=== PATIENT | male | born 1955 ===

== ENCOUNTER 2018-02-26 02:43 | Emergency (ER) | payer SELFPAY ==
[2018-02-26 02:50] VITALS: TEMP 98.7; O2SAT 95
[2018-02-26 04:30] LABS: BASO # 0.1 K/uL (0.0-0.2); EOS # 0.2 K/uL (0.0-0.7); HEMOGLOBIN 14.1 g/dL (12.0-18.0); LYMPH # 0.7 K/uL (1.0-4.3); LYMPH % 15.4 % (20.0-40.0); MEAN CELL VOLUME 86.8 fL (80.0-94.0); MEAN CORPUSCULAR HEMOGLOBIN 30.4 pg (27.0-31.0); MEAN PLATELET VOLUME 7.2 fL (7.2-11.7); MONO # 0.2 K/uL (0.0-0.8); MONO % 4.8 % (0.0-10.0); NEUT # 3.6 K/uL (1.8-7.0); NEUT % 73.8 % (50.0-75.0); NRBC % 0.1 % (0.0-2.0); RBC 4.63 Mil/uL (4.40-5.90); RED CELL DISTRIBUTION WIDTH 13.4 % (11.5-14.5); WHITE BLOOD COUNT 4.8 K/uL (4.8-10.8)
[2018-02-26 04:41] LABS: ALB/GLOB RATIO 1.4 (1.0-2.1); ALBUMIN 4.3 g/dL (3.5-5.0); ALT/SGPT 30 U/L (21-72); AST/SGOT 52 U/L (17-59); BLOOD UREA NITROGEN 6 mg/dL (9-20); CALCIUM 8.8 mg/dl (8.6-10.4); GFR AFRICAN-AMERICAN > 60; GFR NON-AFRICAN AMERICAN > 60
--- NOTE | 2018-02-26 05:13 | C.PDOC ---
History Of Present Illness 62 year old male is brought in to the ED for evaluation. Patient has PMHx of chronic alcoholism, currently c/o headache. Patient reports left sided headache as well as feeling like he is having a panic attack. Patient denies fever, chills, injury, fall, trauma, CP, SOB, weakness, numbness, SI/HI, hallucinations. Time Seen by Provider: 02/26/18 03:26 Chief Complaint (Nursing): Headache History Per: Patient, EMS History/Exam Limitations: intoxication Onset/Duration Of Symptoms: Hrs Current Symptoms Are (Timing): Still Present Quality: "Pain" Associated Symptoms: denies: Photophobia, Blurred Vision Recent travel outside of the [place]: No Additional History Per: Patient Past Medical History Reviewed: Historical Data, Nursing Documentation, Vital Signs Vital Signs: Last Vital Signs Temp 98.7 F 02/26/18 02:49 Pulse 72 02/26/18 02:49 Resp 18 02/26/18 02:49 BP 135/88 02/26/18 02:49 Pulse Ox 95 02/26/18 05:17 - Medical History PMH: No Chronic Diseases Surgical History: No Surg Hx Family History: States: Unknown Family Hx - Social History Hx Alcohol Use: Yes Hx Substance Use: No - Immunization History Hx Tetanus Toxoid Vaccination: No Hx Influenza Vaccination: No Hx Pneumococcal Vaccination: No Review Of Systems Constitutional: Negative for: Fever, Chills Eyes: Negative for: Vision Change Cardiovascular: Negative for: Chest Pain, Palpitations Respiratory: Negative for: Cough, Shortness of Breath Gastrointestinal: Negative for: Nausea, Vomiting, Abdominal Pain Neurological: Positive for: Headache. Negative for: Weakness, Numbness, Dizziness Psych: Negative for: Depression, Suicidal ideation Physical Exam - Physical Exam Appears: Non-toxic, No Acute Distress, Other (AOB, sleeping) Skin: Normal Color, Warm, Dry Head: Atraumatic, Normacephalic Eye(s): bilateral: Normal Inspection, PERRL, EOMI Oral Mucosa: Moist Neck: Normal ROM, Supple Chest: Symmetrical Cardiovascular: Rhythm Regular Respiratory: Normal Breath Sounds, No Rales, No Rhonchi, No Wheezing Gastrointestinal/Abdominal: Soft, No Tenderness, No Guarding, No Rebound Extremity: Normal ROM, No Tenderness, No Swelling Neurological/Psych: Oriented x3, Normal Speech, Normal Motor, Normal Sensation, Other (no focal deficits) Gait: Steady ED Course And Treatment - Laboratory Results Result Diagrams: 02/26/18 04:25 02/26/18 04:25 O2 Sat by Pulse Oximetry: 95 (ON RA) Pulse Ox Interpretation: Normal Progress Note: Plan: - Tylenol 650 mg PO. - Labs. Patient is currently sleeping while in the ED, appears to be in NAD, no visible signs of external trauma. 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 - Scribe Statement The provider has reviewed the documentation as recorded by the Scribe Josesito Rao All medical record entries made by the Scribe were at my direction and personally dictated by me. I have reviewed the chart and agree that the record accurately reflects my personal performance of the history, physical exam, medical decision making, and the department course for this patient. I have also personally directed, reviewed, and agree with the discharge instructions and disposition.
[2018-02-26 06:26] VITALS: BP 144/75; PULSE 88; RESP 20
== END 2018-02-26 06:26 | disposition home or self-care (01) ==
LOC: C.ER 02:43 → SUPCPDRO 02:43 → C.ER 06:26
DX: R51 Headache (principal); F41.9 Anxiety disorder, unspecified; F10.129 Alcohol abuse with intoxication, unspecified; Y90.9 Presence of alcohol in blood, level not specified
CPT/HCPCS: 80053; 82948; 85025; 99285; G0480

== ENCOUNTER 2018-04-17 05:53 | Emergency (ER) | payer SELFPAY ==
[2018-04-17 06:02] VITALS: BP 142/88; PULSE 65; RESP 22; TEMP 98.2; O2SAT 98
--- NOTE | 2018-04-17 07:34 | C.PDOC ---
History Of Present Illness 62 y/o male presents to ED for evaluation of unable to sleep for the past few days. He denies SI, HI, or any active physical complaints at this time. Time Seen by Provider: 04/17/18 07:12 Chief Complaint (Nursing): Anxiety History Per: Patient History/Exam Limitations: no limitations Onset/Duration Of Symptoms: Days Current Symptoms Are (Timing): Still Present Suicide/Self Injury Attempted (Context): None Modifying Factor(s): None Severity: None Pain Scale Rating Of: 0 Associated Symptoms: denies: Suicidal Thoughts, Suicidal Plan Involuntary Hold By: None Recent travel outside of the [place]: No Additional History Per: Patient Past Medical History Reviewed: Historical Data, Nursing Documentation, Vital Signs Vital Signs: Last Vital Signs Temp 98.2 F 04/17/18 06:01 Pulse 65 04/17/18 06:01 Resp 22 04/17/18 06:01 BP 142/88 04/17/18 06:01 Pulse Ox 98 04/17/18 09:26 - Medical History PMH: Anxiety, Depression, HTN Denies: Diabetes, Hepatitis, HIV, Seizures, Sexually Transmitted Disease Family History: States: Unknown Family Hx - Social History Hx Alcohol Use: Yes Hx Substance Use: No - Immunization History Hx Tetanus Toxoid Vaccination: No Hx Influenza Vaccination: No Hx Pneumococcal Vaccination: No Review Of Systems Except As Marked, All Systems Reviewed And Found Negative. Constitutional: Negative for: Fever, Chills Cardiovascular: Negative for: Chest Pain, Palpitations Respiratory: Negative for: Shortness of Breath Psych: Positive for: Other (unable to sleep). Negative for: Suicidal ideation Physical Exam - Physical Exam Appears: Non-toxic, No Acute Distress Skin: Normal Color, Warm, Dry Head: Atraumatic, Normacephalic Eye(s): bilateral: Normal Inspection Oral Mucosa: Moist Neck: Normal ROM, Supple Cardiovascular: Rhythm Regular Respiratory: Normal Breath Sounds, No Rales, No Rhonchi, No Wheezing Gastrointestinal/Abdominal: Soft, No Tenderness Extremity: Normal ROM Neurological/Psych: Oriented x3, Normal Speech ED Course And Treatment O2 Sat by Pulse Oximetry: 98 (RA) Pulse Ox Interpretation: Normal Medical Decision Making Medical Decision Making: Plan: Crisis evaluation Progress note: Pt was evaluated by dry yard workerAminah who reports pt does not meet criteria for further evaluation. Pt was seen 2 days ago at [facility] ER and was given 2 new medications including Klonopin, and Lexapro. Discussed with patient that he has to continue taking those new medications for few days and if he does not feel better in 2-3 days then he can follow up with mental health clinic. Pt agrees with plan. Disposition - Disposition Referrals: [facility] [Outside] Disposition: HOME/ ROUTINE Disposition Time: 07:32 Condition: STABLE Additional Instructions: Follow up with Mental health clinic on April 20, 2018. Take all your medications as instructed. Return to ED if feel worse. 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 - Scribe Statement The provider has reviewed the documentation as recorded by the Scribe KP All medical record entries made by the Scribe were at my direction and personally dictated by me. I have reviewed the chart and agree that the record accurately reflects my personal performance of the history, physical exam, medical decision making, and the department course for this patient. I have also personally directed, reviewed, and agree with the discharge instructions and disposition.
== END 2018-04-17 07:44 | disposition home or self-care (01) ==
LOC: C.ER 05:53
DX: G47.00 Insomnia, unspecified (principal); F41.9 Anxiety disorder, unspecified

== ENCOUNTER 2018-04-19 21:40 | Emergency (ER) | payer SELFPAY ==
[2018-04-19 21:51] VITALS: BP 132/82; PULSE 51; RESP 16; TEMP 98.1; O2SAT 97
--- NOTE | 2018-04-19 22:20 | C.PDOC ---
History Of Present Illness 62 year old male presents to the ED c/o persistent insomnia for the past 5 days. Patient is also c/o headache for the past 1 day. Patient was seen in the ED on 04/17 for the same symptoms, patient was seen on 04/15 at [facility] ER and given 2 new medications including Klonopin and Lexapro. Patient states no improvement with the medications, no improvement with Aleve. Patient has tried to follow up with PMD but the office was closed due to the Holiday. Patient denies visual changes, nausea, vomit, weakness, numbness, dizziness, trauma, injury, fall. CO PERSIST INSOMNIA X 5 DAYS, GUERRERO X 1 DAY. SEEN 04/17 FOR SAME, Pt was seen 04/15 days ago at [facility] ER and was given 2 new medications including Klonopin, and Lexapro. PS NO IMPROVE W MEDS, NO IMPROVE W ALEVE. PS TRIED TO FU W PMD BUT OFFICE CLOSED FROM HOLIDAY EXAM NEG Time Seen by Provider: 04/19/18 22:08 Chief Complaint (Nursing): Headache History Per: Patient History/Exam Limitations: no limitations Onset/Duration Of Symptoms: Days (5) Current Symptoms Are (Timing): Still Present Reports Recently: Seen In ED (04/17) Recent travel outside of the [place]: No Additional History Per: Patient Past Medical History Reviewed: Historical Data, Nursing Documentation, Vital Signs Vital Signs: Last Vital Signs Temp 98.1 F 04/19/18 21:48 Pulse 51 L 04/19/18 21:48 Resp 16 04/19/18 21:48 BP 132/82 04/19/18 21:48 Pulse Ox 97 04/19/18 22:24 - Medical History PMH: Anxiety, Depression, HTN Denies: Diabetes, Hepatitis, HIV, Seizures, Sexually Transmitted Disease Surgical History: No Surg Hx Family History: States: Unknown Family Hx - Social History Hx Alcohol Use: Yes Hx Substance Use: No - Immunization History Hx Tetanus Toxoid Vaccination: No Hx Influenza Vaccination: No Hx Pneumococcal Vaccination: No Review Of Systems Constitutional: Negative for: Fever, Chills Eyes: Negative for: Vision Change Cardiovascular: Negative for: Chest Pain Respiratory: Negative for: Shortness of Breath Gastrointestinal: Negative for: Nausea, Vomiting Musculoskeletal: Negative for: Neck Pain Skin: Negative for: Rash Neurological: Positive for: Headache. Negative for: Weakness, Numbness, Dizziness Physical Exam - Physical Exam Appears: Non-toxic, No Acute Distress Skin: Normal Color, Warm, Dry Head: Atraumatic, Normacephalic Eye(s): bilateral: Normal Inspection, PERRL, EOMI Oral Mucosa: Moist Neck: Normal ROM, Supple Chest: Symmetrical Cardiovascular: Rhythm Regular Respiratory: Normal Breath Sounds, No Rales, No Rhonchi, No Wheezing Gastrointestinal/Abdominal: Soft, No Tenderness, No Guarding, No Rebound Extremity: Normal ROM, No Tenderness, No Swelling Neurological/Psych: Oriented x3, Normal Speech, Normal Cognition, Normal Motor, Normal Sensation Gait: Steady ED Course And Treatment O2 Sat by Pulse Oximetry: 97 (ON RA) Pulse Ox Interpretation: Normal - Physician Consult Information Time Consulting Physician Contacted: 22:21 Outcome Of Conversation: SP EVAL CRISIS CAMILO, REITERATED TO PT NEEDS TO FU CLINIC PREV DISCUSSED FOR BZ REFILL Disposition Counseled Patient/Family Regarding: Diagnosis, Need For Followup - Disposition Referrals: YOUR,PMD [Other] Disposition: HOME/ ROUTINE Disposition Time: 22:22 Condition: IMPROVED Prescriptions: Acetaminophen [Tylenol Extra Strength] 2 tab PO Q6 #30 tablet DiphenhydrAMINE [Benadryl] 50 mg PO TID PRN #12 cap PRN Reason: Itching / Pruritus Instructions: Headache, Adult (DC), Insomnia (DC) Forms: [employer] (Mongolian) - Clinical Impression Clinical Impression: Headache, Insomnia - Scribe Statement The provider has reviewed the documentation as recorded by the Scribe Josesito Rao All medical record entries made by the Scribe were at my direction and personally dictated by me. I have reviewed the chart and agree that the record accurately reflects my personal performance of the history, physical exam, medical decision making, and the department course for this patient. I have also personally directed, reviewed, and agree with the discharge instructions and disposition.
== END 2018-04-19 22:39 | disposition home or self-care (01) ==
LOC: C.ER 21:40
DX: G47.00 Insomnia, unspecified (principal); R51 Headache

== ENCOUNTER 2018-09-26 09:44 | Emergency (ER) | payer SELFPAY ==
[2018-09-26 10:01] VITALS: BP 147/81; PULSE 92; RESP 18; TEMP 97.7; O2SAT 97
--- NOTE | 2018-09-26 10:30 | C.PDOC ---
History Of Present Illness 62 y/o male presents to the ED complaining of anxiety prior to arrival. Patient reports improvement status post taking Lorazepan 2mg prior to arrival. States he drinks alcohol intermittently, last drink was yesterday. Denies any other symptoms. 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 INTERMIT ETOH, LAST DRINK YEST. DENIES OTHER SX EXAM APPEARS COMFORTABLE HEENT NO FASCICULATION PSYCH CALM COOPERATIVE NO ACUTE INTOX/WITHDR REMAINDER NEG Time Seen by Provider: 09/26/18 10:05 Chief Complaint (Nursing): Psychiatric Evaluation History Per: Patient History/Exam Limitations: no limitations Onset/Duration Of Symptoms: Mins Current Symptoms Are (Timing): Still Present Suicide/Self Injury Attempted (Context): None Modifying Factor(s): None Associated Symptoms: Anxiety Past Medical History Reviewed: Historical Data, Nursing Documentation, Vital Signs Vital Signs: Last Vital Signs Temp 97.7 F 09/26/18 09:48 Pulse 92 H 09/26/18 09:48 Resp 18 09/26/18 09:48 BP 147/81 09/26/18 09:48 Pulse Ox 97 09/26/18 09:48 - Medical History PMH: Anxiety, Depression, HTN Denies: Diabetes, Hepatitis, HIV, Seizures, Sexually Transmitted Disease Surgical History: No Surg Hx Family History: States: No Known Family Hx - Social History Hx Alcohol Use: Yes Hx Substance Use: No - Immunization History Hx Tetanus Toxoid Vaccination: No Hx Influenza Vaccination: No Hx Pneumococcal Vaccination: No Review Of Systems Except As Marked, All Systems Reviewed And Found Negative. Constitutional: Negative for: Fever, Chills Cardiovascular: Negative for: Chest Pain Respiratory: Negative for: Shortness of Breath Psych: Positive for: Anxiety Physical Exam - Physical Exam Appears: Non-toxic, No Acute Distress, Other (appears comfortable ) Skin: Warm, Dry Head: Normacephalic, No Other (fasciculation) Eye(s): bilateral: Normal Inspection Nose: Normal Oral Mucosa: Moist Neck: Supple Chest: Symmetrical Cardiovascular: Rhythm Regular Respiratory: No Accessory Muscle Use, Other (NARD) Extremity: Bilateral: Atraumatic Neurological/Psych: Oriented x3, Normal Speech, Other (calm, cooperative, no acute intox/withdrawal ) Gait: Steady ED Course And Treatment O2 Sat by Pulse Oximetry: 97 (RA) Pulse Ox Interpretation: Normal Disposition Counseled Patient/Family Regarding: Diagnosis, Need For Followup - Disposition Referrals: On License Of [facility] [Outside] [facility] [Outside] Disposition: HOME/ ROUTINE Disposition Time: 10:29 Condition: IMPROVED Instructions: Anxiety, Adult (DC) Forms: [employer] (Somali) Print Language: MOSOTHO - Clinical Impression Clinical Impression: Anxiety - Scribe Statement The provider has reviewed the documentation as recorded by the Scribe Tonia Herrera All medical record entries made by the Hunter were at my direction and personally dictated by me. I have reviewed the chart and agree that the record accurately reflects my personal performance of the history, physical exam, medical decision making, and the department course for this patient. I have also personally directed, reviewed, and agree with the discharge instructions and disposition.
== END 2018-09-26 11:20 | disposition home or self-care (01) ==
LOC: C.ER 09:44
DX: F41.9 Anxiety disorder, unspecified (principal); I10 Essential (primary) hypertension

== ENCOUNTER 2018-09-26 15:18 | Inpatient (IN) | payer SELFPAY ==
[2018-09-26 16:53] LABS: BASO % 0.5 % (0.0-2.0); EOS % 0.2 % (0.0-4.0); HEMOGLOBIN 14.3 g/dL (12.0-18.0); LYMPH # 0.9 K/uL (1.0-4.3); LYMPH % 14.1 % (20.0-40.0); MEAN CELL VOLUME 90.9 fL (80.0-94.0); MEAN CORPUSCULAR HEMOGLOBIN 30.8 pg (27.0-31.0); MEAN CORPUSCULAR HGB CONC 33.8 g/dL (33.0-37.0); MEAN PLATELET VOLUME 7.6 fL (7.2-11.7); MONO # 0.4 K/uL (0.0-0.8); MONO % 5.8 % (0.0-10.0); NEUT % 79.4 % (50.0-75.0); RBC 4.65 Mil/uL (4.40-5.90); WHITE BLOOD COUNT 6.2 K/uL (4.8-10.8)
[2018-09-26 17:04] LABS: ALB/GLOB RATIO 1.6 (1.0-2.1); ALT/SGPT 49 U/L (21-72); AST/SGOT 92 U/L (17-59); BLOOD UREA NITROGEN 10 mg/dL (9-20); CALCIUM 9.3 mg/dl (8.6-10.4); GFR NON-AFRICAN AMERICAN > 60
[2018-09-26 17:52] LABS: URINE BILIRUBIN NEGATIVE (NEGATIVE); URINE BLOOD NEGATIVE (NEGATIVE); URINE CLARITY Clear (Clear); URINE COLOR Straw (YELLOW); URINE GLUCOSE (UA) NORMAL (Normal); URINE LEUKOCYTE ESTERASE NEG Leu/uL (Negative); URINE PROTEIN NEGATIVE (NEGATIVE); URINE UROBILINOGEN NORMAL mg/dL (0.2-1.0)
[2018-09-26 18:09] LABS: BARBITURATES, UR NEGATIVE (NEGATIVE); BENZODIAZEPINES, UR NEGATIVE (NEGATIVE); OPIATES, UR NEGATIVE (NEGATIVE); PHENCYCLIDINE, UR NEGATIVE (NEGATIVE)
--- NOTE | 2018-09-26 18:29 | C.PDOC ---
History Of Present Illness 62 y/o male comes to ED complaining of anxiety and tremors. Patient was seen here this morning for similar complaint and was discharged and instructed to follow up with his doctor. Patient has history of alcohol abuse. It is unclear when he last drank, he states hes been sober for a number of months prior to his last drink. He reports that alcohol calms his nerves and helps him with his tremors. Patient is taking Ativan for his withdrawal. Denies any headache, chest pain, or SOB . Time Seen by Provider: 09/26/18 15:46 Chief Complaint (Nursing): Psychiatric Evaluation History Per: Patient History/Exam Limitations: no limitations Onset/Duration Of Symptoms: Hrs Current Symptoms Are (Timing): Still Present Past Medical History Reviewed: Historical Data, Nursing Documentation, Vital Signs Vital Signs: Last Vital Signs Temp 97.4 F L 09/26/18 15:26 Pulse 114 H 09/26/18 15:26 Resp 20 09/26/18 15:26 BP 138/80 09/26/18 15:26 Pulse Ox 97 09/26/18 15:26 - Medical History PMH: Anxiety, Depression, HTN Denies: Diabetes, Hepatitis, HIV, Seizures, Sexually Transmitted Disease Family History: States: No Known Family Hx - Social History Hx Alcohol Use: Yes Hx Substance Use: No - Immunization History Hx Tetanus Toxoid Vaccination: No Hx Influenza Vaccination: No Hx Pneumococcal Vaccination: No Review Of Systems Except As Marked, All Systems Reviewed And Found Negative. Cardiovascular: Negative for: Chest Pain Respiratory: Negative for: Shortness of Breath Neurological: Negative for: Headache Psych: Positive for: Anxiety, Withdrawal (tremors), Other (alcohol abuse) Physical Exam - Physical Exam Appears: Non-toxic, No Acute Distress Skin: Warm, Dry Head: Atraumatic, Normacephalic Eye(s): bilateral: Normal Inspection Oral Mucosa: Moist Neck: Supple Cardiovascular: Rhythm Regular, No Murmur Respiratory: Normal Breath Sounds, No Rales, No Rhonchi, No Wheezing Gastrointestinal/Abdominal: Soft, No Tenderness Extremity: Bilateral: Atraumatic, Normal Color And Temperature, Normal ROM Neurological/Psych: Oriented x3, Normal Speech ED Course And Treatment - Laboratory Results Result Diagrams: 09/26/18 16:46 09/26/18 16:46 Lab Results: Total Bilirubin 1.1 mg/dL (0.2-1.3) 09/26/18 16:46 AST 92 U/L (17-59) H D 09/26/18 16:46 ALT 49 U/L (21-72) 09/26/18 16:46 Alkaline Phosphatase 93 U/L (38-126) 09/26/18 16:46 Total Protein 8.2 g/dL (6.3-8.3) 09/26/18 16:46 Albumin 5.0 g/dL (3.5-5.0) 09/26/18 16:46 Globulin 3.1 gm/dL (2.2-3.9) 09/26/18 16:46 Albumin/Globulin Ratio 1.6 (1.0-2.1) 09/26/18 16:46 Urine Color Straw (YELLOW) 09/26/18 17:37 Urine Clarity Clear (Clear) 09/26/18 17:37 Urine pH 7.0 (5.0-8.0) 09/26/18 17:37 Ur Specific [place] 1.004 (1.003-1.030) 09/26/18 17:37 Urine Protein Negative mg/dL (NEGATIVE) 09/26/18 17:37 Urine Glucose (UA) Normal mg/dL (Normal) 09/26/18 17:37 Urine Ketones Negative mg/dL (NEGATIVE) 09/26/18 17:37 Urine Blood Negative (NEGATIVE) 09/26/18 17:37 Urine Nitrate Negative (NEGATIVE) 09/26/18 17:37 Urine Bilirubin Negative (NEGATIVE) 09/26/18 17:37 Urine Urobilinogen Normal mg/dL (0.2-1.0) 09/26/18 17:37 Ur Leukocyte Esterase Neg Niru/uL (Negative) 09/26/18 17:37 Urine WBC (Auto) < 1 /hpf (0-5) 09/26/18 17:37 Urine RBC (Auto) < 1 /hpf (0-3) 09/26/18 17:37 O2 Sat by Pulse Oximetry: 97 (RA) Pulse Ox Interpretation: Normal Medical Decision Making Medical Decision Making: Plan: --Labs --UA --Ativan 2 mg PO Pending crisis evaluation and hospitalization to detox. Disposition Counseled Patient/Family Regarding: Diagnosis, Need For Followup - Disposition Disposition: HOSPITALIZED Disposition Time: 18:27 Condition: STABLE Forms: [employer] (Bengali) - POA Present On Arrival: None - Clinical Impression Clinical Impression: Alcohol abuse - Scribe Statement The provider has reviewed the documentation as recorded by the Pascualibsree Gomes Provider Attestation: All medical record entries made by the Scribe were at my direction and personally dictated by me. I have reviewed the chart and agree that the record accurately reflects my personal performance of the history, physical exam, medical decision making, and the department course for this patient. I have also personally directed, reviewed, and agree with the discharge instructions and disposition. Decision To Admit - Pt Status Changed To: Hospital Disposition Of: Inpatient - Admit Certification Admit to Inpatient:: After my assessment, the patient will require hospitalization for at least two midnights. This is because of the severity of symptoms shown, intensity of services needed, and/or the medical risk in this patient being treated as an outpatient. - InPatient: Physician Admission Certification: I certify that this patient requires 2 or more midnights of care for the following reason:: needs medical detox - . Bed Request Type: Detox Admitting Physician: Nadia Melendrez Patient Diagnosis: Alcohol abuse
--- NOTE | 2018-09-26 21:49 | PCM.BM ---
<Mayte Vogel F - Last Filed: 09/26/18 21:46> Treatment Plan Problems - Problems identified on initial assessmt Anxiety Related to Substance Use Date Initiated: 09/26/18 Time Initiated: 21:48 Assessment reference: NA Status: Active Denial Date Initiated: 09/26/18 Time Initiated: 21:48 Assessment reference: NA Status: Active Defensive Coping Date Initiated: 09/26/18 Time Initiated: 21:48 Assessment reference: NA Status: Active Treatment assets and liabiliti Patient Assests: cooperative, ADL independent Patient Liabilities: substance abuse (Alcohol), other - Milieu Protocol Maintain good personal hygiene: daily Encourage regular showers, daily Remind patient to perform daily oral care, daily Assist patient to perform ADL's Conduct patient checks and document Observation sheet: Q15 minutes Maintain personal safety: every shift Educate patient to report safety concerns to staff, every shift Monitor environment for contraband/sharps Medication safety: Monitor for expected outcome, potential side effects: every shift, Assess barriers to learning: every shift, Assess readiness for medication education: every shift <Aliya Kaplan - Last Filed: 09/28/18 13:02> Family Contact Family involvement: No known Family/SO - Goals for Treatment Patient goals for treatment: Complete detox and transition to [employer] AA meetings and [employer] support. 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
[2018-09-27] MEDS: Multiple Vitamins Tab PO SCH (09:19)
--- NOTE | 2018-09-27 10:03 | PCM.PSYCH ---
Initial Psychiatric Evaluation - Initial Psychiatric Evaluation Type of Admission: Voluntary Legal Status: Capacity Chief Complaint (in patient's own words): "I don't feel well." History of Present Illness and Precipitating Events: Patient is a 68 year old male that is single, has a 42 year old son, retired, rents a room with two friends, and currently supports himself by means of unemployment and social security checks. Patient went to the [facility] ED on 09/26 for anxiety and tremors and was admitted for alcohol detox. On examination patient appears anxious but is open to questioning. He comments that he has a history of alcohol abuse, drinking lots of beers daily, and that he currently drinks to stop himself from shaking. He was previously sober from May of 2018 but relapsed recently back into drinking. Patient denies illicit drug use or tobacco use. He has never had any seizures as related to alcohol withdrawal. Patient has never been to a detox unit previously and has never been part of a rehabilitation program. PMHx: HTN, Arthritis PsychHx: Anxiety, Panic Disorder, Alcohol use disorder. FMHx: Denies Medications: Lorazepam Current Medications: Active Medications Generic Name Dose Route Start Last Admin Trade Name Freq PRN Reason Stop Dose Admin Chlordiazepoxide 25 mg 09/26/18 20:08 09/26/18 21:44 Librium PO 25 mg Q6 PRN Administration alcohol withdrawal Chlordiazepoxide 25 mg 09/27/18 10:00 09/27/18 09:19 Librium PO 10/02/18 09:59 25 mg Q6H SHELLEY Administration Taper Clonidine HCl 0.1 mg 09/26/18 20:08 Catapres PO Q6 PRN alcohol withdrawal Folic Acid 1 mg 09/27/18 10:00 09/27/18 09:19 Folic Acid PO 1 mg DAILY SHELLEY Administration Gabapentin 100 mg 09/27/18 10:00 09/27/18 09:19 Neurontin PO 100 mg TID SHELLEY Administration Hydroxyzine HCl 25 mg 09/26/18 21:36 Atarax PO Q4H PRN Anxiety Ibuprofen 400 mg 09/26/18 21:36 Motrin Tab PO Q6H PRN Pain, moderate (4-7) Multivitamins 1 tab 09/27/18 10:00 09/27/18 09:19 Hexavitamin PO 1 tab DAILY SHELLEY Administration Thiamine HCl 100 mg 09/27/18 10:00 09/27/18 09:19 Vitamin B1 Tab PO 100 mg DAILY SHELLEY Administration Trazodone HCl 50 mg 09/26/18 20:07 09/26/18 21:40 Desyrel PO 50 mg HS PRN Administration Insomnia Past Psychiatric History - Past Psychiatric History Previous Treatment History: Intensive Outpatient Pertinent Medical Hx (Current Medical&Sleep Prob, Allergies): Allergies Allergy/AdvReac Type Severity Reaction Status Date / Time No Known Allergies Allergy Verified 04/19/18 21:50 Escitalopram [Lexapro] 10 mg PO DAILY 04/17/18 Metoprolol Succinate 25 mg PO DAILY 04/17/18 Lorazepam [Ativan] 2 mg PO DAILY 09/26/18 Review of Systems - Psychiatric Psychiatric: Abnormal Sleep Pattern, Anxiety, Behavioral Changes, Depression, Difficulty Concentrating. absent: Auditory Hallucinations, Homicidal Ideation, Suicidal Ideation, Visual Hallucinations Mental Status Examination - Personal Presentation Personal Presentation: Looks stated age - Affect Affect: Broad - Motor Activity Motor Activity: Calm - Reliability in Providing Information Reliability in Providing Information: Good - Speech Speech: Organized - Mood Mood: Anxious - Formal Thought Process Formal Thought Process: No Impairment - Obsessions/Compulsions Obsessions: No Compulsions: No - Cognitive Functions Orientation: Person, Place, Situation, Time Sensorium: Alert Attention/Concentration: Attentive Abstract Thinking: Constantine Estimate of Intelligence: Average Judgement: Intact, as evidence by: Good judgement Memory: Recent intact, as evidence by: Ability to recall events of the day, Remote intact, as evidenced by: Abilit to recall sig. life events - Risk Risk: Withdrawal, Diminished functioning - Strength & Assets Inventory Strength & Assets Inventory: Cooperative DSM 5 DX - DSM 5 DSM 5 Diagnosis: Alcohol withdrawal Alcohol use disorder, severe Depressive d/o - unspecified - Recommended/Plan of Treatment Treatment Recommendations and Plan of Treatment: Taper with Librium Gabapentin for augmentation if needed As needed medications All risks, benefits and alternatives of the meds discussed, and the pt agreed and understood. Attend groups and activities Supportive therapy and psychoeducation [place] for abstinence CBT for relapse prevention Encourage MAT Refer to rehab or IOP, and self-help groups Teach healthy lifestyle methods, i.e. diet, exercise, meditation Smoking cessation with [place] Nicotine patch if needed 34 min Projected ELOS: 4-5 Days Prognosis: Good with treatment
[2018-09-27] MEDS ORDERED: Magnesium Hydroxide Susp 30 ml UD PO PRN (22:33)
[2018-09-28] MEDS: Multiple Vitamins Tab PO SCH (09:52)
[2018-09-28] MEDS: Gentamicin Sulfate 0.3% Ophth SOLN OU SCH ×2 (14:56→18:21)
[2018-09-28] MEDS: Magnesium Hydroxide Susp 30 ml UD PO PRN (18:36)
[2018-09-29] MEDS: Multiple Vitamins Tab PO SCH (09:27)
[2018-09-29] MEDS: Gentamicin Sulfate 0.3% Ophth SOLN OU SCH ×3 (09:28→17:30)
[2018-09-29] MEDS: Magnesium Hydroxide Susp 30 ml UD PO PRN (10:31)
[2018-09-29 21:25] VITALS: O2SAT 98
[2018-09-30 04:35] VITALS: PULSE 77; RESP 18
[2018-09-30] MEDS: Multiple Vitamins Tab PO SCH (09:41)
[2018-09-30] MEDS: Gentamicin Sulfate 0.3% Ophth SOLN OU SCH (09:42)
[2018-09-30 10:00] VITALS: BP 101/64; TEMP 97.7
--- NOTE | 2018-09-30 10:54 | PCM.PYCHDC ---
Mental Status Examination - Mental Status Examination Orientation: Person Discharge Summary - Discharge Note Consultations:: List each consultation separately and include: 1. Reason for request. 2. Findings. 3. Follow-up Summary of Hospital Course include:: 1. Description of specific treatment plan utilized for patients during their course of treatmen. 2. Summarize the time- course for resolution of acute symptoms and/or regressed behaviors. 3. Describe issues identified and worked on during hospitalization. 4. Describe medication utilized. 5. Describe medical problems identified and treated. 6. Reassessment of suicide risk Summary of Hospital Course: Patient is a 68 year old male that is single, has a 42 year old son, retired, rents a room with two friends, and currently supports himself by means of unemployment and social security checks. Patient went to the [facility] ED on 09/26 for anxiety and tremors and was admitted for alcohol detox. On examination patient appears anxious but is open to questioning. He comments that he has a history of alcohol abuse, drinking lots of beers daily, and that he currently drinks to stop himself from shaking. He was previously sober from May of 2018 but relapsed recently back into drinking. Patient denies illicit drug use or tobacco use. He has never had any seizures as related to alcohol withdrawal. Patient has never been to a detox unit previously and has never been part of a rehabilitation program. PMHx: HTN, Arthritis PsychHx: Anxiety, Panic Disorder, Alcohol use disorder. FMHx: Denies Medications: Lorazepam He will go to AA. And his [employer] group. He refused the rest - Final Diagnosis (DSM 5) Condition upon Discharge: STABLE Disposition: HOME/ ROUTINE Follow-up Treatment Plan: Taper with Librium Gabapentin for augmentation if needed As needed medications All risks, benefits and alternatives of the meds discussed, and the pt agreed and understood. Attend groups and activities Supportive therapy and psychoeducation [place] for abstinence CBT for relapse prevention Encourage MAT Refer to rehab or IOP, and self-help groups Teach healthy lifestyle methods, i.e. diet, exercise, meditation Smoking cessation with [place] Nicotine patch if needed 34 min Prescriptions/Medication Reconciliation: hydrOXYzine HCl [Atarax] 25 mg PO DAILY PRN #30 tab PRN Reason: Anxiety traZODone [Desyrel] 50 mg PO HS PRN #30 tab PRN Reason: Insomnia
== END 2018-09-30 11:35 | disposition home or self-care (01) | DRG 897 ==
LOC: C.ER 15:18 → C.7D 18:29
PROVIDERS: ADMIT Psychiatry & Neurology Psychiatry; ATTEND Psychiatry & Neurology Psychiatry
DX: F10.230 Alcohol dependence with withdrawal, uncomplicated (principal); Y90.0 Blood alcohol level of less than 20 mg/100 ml; F32.9 Major depressive disorder, single episode, unspecified; F41.0 Panic disorder [episodic paroxysmal anxiety]; I10 Essential (primary) hypertension